=== PATIENT | female | born 1965 | race Caucasian/White ===

== ENCOUNTER → 2019-05-09 09:13 | Outpatient (BNVA) | payer MEDICAID, SELFPAY | PROVIDERS: Family Provider Family Medicine; PCP Family Medicine; Visit Provider Anesthesiology | DX: G89.29 Other chronic pain (principal); M54.16 Radiculopathy, lumbar region; M79.651 Pain in right thigh; M79.652 Pain in left thigh; M54.2 Cervicalgia; Z79.891 Long term (current) use of opiate analgesic | CPT/HCPCS: 99214 ==

== ENCOUNTER → 2019-07-05 10:09 | Outpatient (BNVA) | payer MEDICAID, SELFPAY | PROVIDERS: Family Provider Family Medicine; PCP Family Medicine; Visit Provider Nurse Practitioner | DX: G89.29 Other chronic pain (principal); M54.16 Radiculopathy, lumbar region; M54.2 Cervicalgia; Z79.891 Long term (current) use of opiate analgesic | CPT/HCPCS: 99213 ==

== ENCOUNTER → 2019-09-28 09:09 | Outpatient (BNVA) | payer MEDICAID, SELFPAY | PROVIDERS: Family Provider Family Medicine; PCP Family Medicine; Visit Provider Anesthesiology | DX: G89.29 Other chronic pain (principal); M54.41 Lumbago with sciatica, right side; M54.42 Lumbago with sciatica, left side; M47.816 Spondylosis without myelopathy or radiculopathy, lumbar region; M54.16 Radiculopathy, lumbar region; M54.9 Dorsalgia, unspecified; M54.2 Cervicalgia; Z79.891 Long term (current) use of opiate analgesic | CPT/HCPCS: 99214 ==

== ENCOUNTER 2019-10-17 14:12 | Outpatient (CLI) | payer MEDICAID, SELFPAY ==
--- NOTE | 2019-10-17 14:16 | XRR_ITS ---
PROCEDURE INFORMATION: Exam: XR Right Knee Exam date and time: 10/17/2019 2:43 PM Age: 54 years old Clinical indication: Pain; Knee; Right; Additional info: Pain in right knee TECHNIQUE: Imaging protocol: XR Right knee. Views: 3 views. COMPARISON: No relevant prior studies available. FINDINGS: Bones/joints: Unremarkable Soft tissues: Normal. XR/XR knee RT 3V* [id number] IMPRESSION: No acute findings.
== END 2019-10-17 14:13 | disposition home or self-care (01) ==
PROVIDERS: Family Provider Family Medicine; PCP Family Medicine; Visit Provider Registered Nurse
DX: M25.561 Pain in right knee (principal); M25.461 Effusion, right knee
CPT/HCPCS: 73562

== ENCOUNTER 2019-11-06 11:15 | Outpatient (CLI) | payer MEDICAID, SELFPAY ==
--- NOTE | 2019-11-06 11:22 | MR_ITS ---
WS: [id number] MRI RIGHT KNEE HISTORY: ACUTE PAIN OF RIGHT KNEE COMPARISON: Radiographs 10/17/2019 Anterior cruciate ligament: Intact. Posterior cruciate ligament: Intact. Medial collateral ligament: Increased soft tissue and fluid signal along the MCL. There is mild displ acement from the joint line by meniscal extrusion. No full-thickness tear. Posterior lateral corner structures: Intact. Medial menisci: Partially extruded meniscus from the joint line but no tear is identified. Lateral meniscus: Intact. Normal signal, size and shape. Extensor mechanism: Distal quadriceps tendon and patellar tendons are intact. Fluid and soft tissue: Very large suprapatellar joint effusion. Fluid extends around the condyles and there is adjacent soft tissue edema. No Castillo's cyst. Osseous and articular structures: Patellofemoral compartment: Normal. Medial compartment: Mild narrowing medial compartment. There is a narrow fissure in the cartilage ove r the femoral condyle weightbearing surface. There is additional mild narrowing of the joint space an d small osteophytes. Lateral compartment: Mild narrowing of the lateral compartment. Cartilage is intact. T2 bright and T1 low signal well-circumscribed 7 mm nodule in the proximal fibula is probably a small enchondroma. Similar nodule in the distal femur. MR/MR knee RT wo con* [id number] IMPRESSION: 1. Very large joint effusion and soft tissue edema. 2. Mild MCL sprain. 3. Partially extruded medial meniscus. No tear is identified. 4. Small focal cartilage defect along the weightbearing surface medial femoral condyle. 5. Small enchondromas distal femur and proximal fibula.
== END 2019-11-06 11:16 | disposition home or self-care (01) ==
LOC: RADWPI 11:22
PROVIDERS: Family Provider Family Medicine; PCP Family Medicine; Visit Provider Registered Nurse
DX: M25.461 Effusion, right knee (principal); R60.0 Localized edema; S83.411A Sprain of medial collateral ligament of right knee, initial encounter; X58.XXXA Exposure to other specified factors, initial encounter; D16.21 Benign neoplasm of long bones of right lower limb
CPT/HCPCS: 73721

== ENCOUNTER 2019-11-29 07:28 | Day surgery (SDC) | payer MEDICAID, SELFPAY ==
[2019-11-29] VITALS (9 sets, daily range): BP systolic 119–160; BP diastolic 82–98; PULSE 64–96; RESP 16–18; TEMP 36.6–37.1; O2SAT 94–97
[2019-11-29] MEDS: sodium chloride 0.9% 1,000 ML 30 ML IV (08:08)
--- NOTE | 2019-11-29 08:10 | P.ANESASSM_ITS ---
Pre-Anesthetic Assessment Pre-Anesthetic Assessment: Height/Weight: Height 1.61 m Weight 113.398 kg Temp Pulse Resp BP Pulse Ox 97.9 F 77 18 149/94 97 11/29/19 07:40 11/29/19 07:40 11/29/19 07:40 11/29/19 07:40 11/29/19 07:40 Preop Diagnosis: Osteoarthritis right knee Proposed Procedure: Operation Date: 11/29/19 09:15 Proposed Procedures p Knee Arthroscopy 45047 [id number] M17.11(Right) - Dmitriy Wilson MD Familial anesthetic complications: PONV Was Beta Belinda taken within 24 hour s: N/A Last intake: Intake Last Liquid Date 11/28/19 Last Liquid Time 22:00 Last Solid Date 11/28/19 Last Solid Time 20:00 Social: Social History: No alcohol and No tobacco Exam: Pre-Anes Outpt Exam: alert, oriented x 3, clear to auscultation bilaterally and regular rate & rhythm Airway: Cervical ROM: WNL MP: 2 Dentition: Chipped Musc/skel: Comments: back pain and neck pain Anesthetic Plan: ASA status: 1 Anesthesia: General Risk of > 500 ml blo od loss (7ml/kg in children): No Meds/Allergies Current Medications: Current Medications Generic Name Dose Route Start Last Admin Trade Name Freq PRN Reason Stop Dose Admin Sodium Chloride 1,000 mls @ 30 ml s/hr 11/29/19 07:45 11/29/19 08:08 Sodium Chloride 0.9% IV 11/30/19 07:44 30 mls/hr .Q24H JOSS Administration PFSH Anesthesia PFSH: Medical History (Updated 11/12/19 @ 09:59 by Dmitriy Wilson MD) Chronic neck pain Encounter for long-term opiate analgesic use Opioid contract exists Radiculopathy, lumbar region Surgical History History of cholecystectomy History of hysterectomy History of knee replacement History of shoulder surgery Family History Other Cancer Social History Smoking and tobacco status: former smoker Alcohol intake: never Data Anesthesia Cardiac Studies: No Data to Display
[2019-11-29] MEDS: scopolamine 1.5 Patch 1 PATCH TRANSDERMA (09:08)
--- NOTE | 2019-11-29 09:20 | W.PM.OPSUD ---
Surgery/Procedure H&P Update DATE OF PROCEDURE: November 29, 2019 DATE H&P PERFORMED: 11/12/19 PREOP DIAGNOSIS: Osteoarthritis right knee PLANNED PROCEDURE: Operation Date: 11/29/19 09:15 Proposed Procedures p Knee Arthroscopy 25670 [id number] M17.11(Right) - Dmitriy Wilson MD
--- NOTE | 2019-11-29 10:12 | P.OP_ITS ---
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 She had exposed subchondral bone centrally over the medial femoral condyle with unstable flaps and fissures over an area of approximately 2 x 2 cm. Her lateral compartment was generally pristine. She had fibrillation and fraying on the undersurface the patella that was not thought to involve more than 50% of the medial facet Condition: stable Disposition: PACU Brief History: Ms. Rodney is a 54-year-old female with chronic right knee pain. She has tried to manage her right knee pain with her pain medication including hydromorphone unsuccessfully. She had a previous of left knee problems that did not respond well to steroid injections and refused she refused injections. Due to her persistent pain arthroscopic debridement was chosen as an option to improve pain and function. She has been counseled as to the limitations of arthroscopy in the presence of osteoarthritis Procedure: The patient was taken to the operating room and given a general anesthesia. Her leg was prepped with a Betadine and her right knee infiltrated with 30 cc of 0.5% Marcaine and 10 mg of morphine. The leg was then prepped and draped in the usual fashion. It was entered through the standard inferior med ial and inferior lateral portal. The diagnostic portion of the arthroscopy was performed and the above findings noted. Initial attention was paid to the medial meniscus. Utilizing a basket unstable central flaps involving approximately 50% of the medial meniscus were removed. The rim was then cleaned up with an incisor shaver and [employer] probe leaving approximately 40% of the meniscus behind. Next attention was focused unstable flaps and fissures of the medial femoral condyle. Utilizing an incisor shaver peripheral unstable flaps about the area of exposed subchondral bone were debrided back. The [employer] probe was then used to debride the edges back to a stable base. The lateral compartment was inspected and found to be pristine. Attention was then focused on the patellofemoral articulation. She had fairly healthy trochlear cartilage but fibrillations and fraying were identified about the patella. Utilizing the [employer] probe unstable fibrillated and frayed cartilage over the medial facet of the patella was lightly debrided back. This debridement was thought to involve less than 50% of the thickness of cartilage and certainly no exposed subchondral bone about the patella was identified. The knee was irrigated with saline. Portals were closed with 3-0 Prolene. Sterile dressings were applied. The patient was extubated and taken to recovery in stable condition.
[2019-11-29] MEDS: fentaNYL 50 mcg/mL INJ 2mL IVP (10:20)
[2019-11-29] MEDS: oxyCODONE 5 mg IR Tab/Cap PO (11:03)
--- NOTE | 2019-11-29 12:30 | ANE.PACU2 ---
Inpatient post-anesthesia follow up: Airway intact: Yes Vital signs: Temperature 98.8 F Pulse Rate 64 Respiratory Rate 18 Blood Pressure 160/90 Pulse Oximetry 96 Oxygen Delivery Me thod Room Air Oxygen Flow Rate Fraction of Inspir ed Oxygen Hydration adequate: Yes Nausea and vomiting: No Pain level: 1 Mental status: Baseline
== END 2019-11-29 11:30 | disposition home or self-care (01) ==
PROVIDERS: PCP Family Medicine; Visit Provider Orthopaedic Surgery
PROC: (CPT 29870; principal; 2019-11-29 09:15)
DX: S83.231A Complex tear of medial meniscus, current injury, right knee, initial encounter (principal); M17.11 Unilateral primary osteoarthritis, right knee; M22.41 Chondromalacia patellae, right knee; M54.16 Radiculopathy, lumbar region; G89.29 Other chronic pain; Z79.891 Long term (current) use of opiate analgesic; Z87.891 Personal history of nicotine dependence; X58.XXXA Exposure to other specified factors, initial encounter
CPT/HCPCS: 29881; 12345; J0690; J2704; J3010; J3490; J7030

== ENCOUNTER → 2019-12-04 08:52 | Outpatient (BNVA) | payer MEDICAID, SELFPAY | PROVIDERS: PCP Family Medicine; Visit Provider Anesthesiology | DX: G89.29 Other chronic pain (principal); M47.816 Spondylosis without myelopathy or radiculopathy, lumbar region; M54.16 Radiculopathy, lumbar region; M17.11 Unilateral primary osteoarthritis, right knee; M54.2 Cervicalgia; M54.9 Dorsalgia, unspecified; Z79.891 Long term (current) use of opiate analgesic | CPT/HCPCS: 99214 ==

== ENCOUNTER → 2020-01-29 09:17 | Outpatient (BNVA) | payer MEDICAID, SELFPAY | PROVIDERS: PCP Family Medicine; Visit Provider Anesthesiology | DX: G89.29 Other chronic pain (principal); M54.16 Radiculopathy, lumbar region; M47.816 Spondylosis without myelopathy or radiculopathy, lumbar region; M54.2 Cervicalgia; M54.9 Dorsalgia, unspecified; Z79.891 Long term (current) use of opiate analgesic | CPT/HCPCS: 99213; 99214 ==

== ENCOUNTER → 2020-03-27 08:56 | Outpatient (BNVA) | payer MEDICAID, SELFPAY | PROVIDERS: PCP Family Medicine; Visit Provider Anesthesiology | DX: G89.29 Other chronic pain (principal); M54.16 Radiculopathy, lumbar region; M47.816 Spondylosis without myelopathy or radiculopathy, lumbar region; M54.9 Dorsalgia, unspecified; M54.2 Cervicalgia; Z79.891 Long term (current) use of opiate analgesic | CPT/HCPCS: 99213; 99214 ==

== ENCOUNTER → 2020-05-29 09:03 | Outpatient (BNVA) | payer MEDICAID, SELFPAY | PROVIDERS: PCP Family Medicine; Visit Provider Anesthesiology | DX: G89.29 Other chronic pain (principal); M54.16 Radiculopathy, lumbar region; M47.816 Spondylosis without myelopathy or radiculopathy, lumbar region; M54.9 Dorsalgia, unspecified; M54.2 Cervicalgia; M17.11 Unilateral primary osteoarthritis, right knee; Z79.891 Long term (current) use of opiate analgesic | CPT/HCPCS: 99214 ==

== ENCOUNTER → 2020-07-29 09:12 | Outpatient (BNVA) | payer MEDICAID, SELFPAY | PROVIDERS: PCP Registered Nurse; Visit Provider Anesthesiology | DX: G89.29 Other chronic pain (principal); M54.16 Radiculopathy, lumbar region; M47.816 Spondylosis without myelopathy or radiculopathy, lumbar region; M54.9 Dorsalgia, unspecified; M54.2 Cervicalgia; M25.561 Pain in right knee; Z79.891 Long term (current) use of opiate analgesic | CPT/HCPCS: 99214 ==

== ENCOUNTER → 2020-09-30 13:11 | Outpatient (BNVA) | payer MEDICAID, SELFPAY | PROVIDERS: PCP Registered Nurse; Visit Provider Anesthesiology | DX: G89.29 Other chronic pain (principal); M54.16 Radiculopathy, lumbar region; M47.816 Spondylosis without myelopathy or radiculopathy, lumbar region; M54.41 Lumbago with sciatica, right side; M54.42 Lumbago with sciatica, left side; Z79.891 Long term (current) use of opiate analgesic; Z87.891 Personal history of nicotine dependence | CPT/HCPCS: 99213 ==

== ENCOUNTER 2020-10-17 08:59 | Outpatient (CLI) | payer MEDICAID, SELFPAY ==
--- NOTE | 2020-10-17 09:08 | MR_ITS ---
WS: [id number] MRI RIGHT KNEE NONCONTRAST TECHNIQUE: Axial PD, coronal PD fat sat, coronal PD, sagittal PD, and sagittal PD fat-sat images obta ined. CLINICAL INFORMATION: PAIN OF RIGHT KNEE COMPARISON: MRI November 06, 2019 FINDINGS: Distal quadriceps and patella tendons are intact. Hypertrophic patella. Moderate suprapatellar effusi on. Prepatellar soft tissue edema. Normal ACL and PCL. Moderate degenerative narrowing involving the joint compartments worse in the medial joint compartment. Progressed loss of joint space medial joint compartment with subchondral edema involving the medial femoral condyle and tibial plateau. Associat ed chondromalacia. Normal lateral meniscus. Chronic thinning and partial extrusion of the medial meniscus appears simila r to previous and slightly progressed. Horizontal tear involving the posterior horn medial meniscus e xtending to the articular surface with chronic intrasubstance signal abnormality. Small amount of nayeli ma along the superficial and deep fibers of the MCL consistent with grade one injury Normal lateral c ollateral ligament. Moderate to advanced chondromalacia patella worse involving the medial patella facet. No subchondral edema.Small enchondromas distal femur and proximal fibula unchanged. MR/MR knee RT wo con* [id number] IMPRESSION: 1. Moderate suprapatellar effusion similar in appearance compared to previous. 2. Normal ACL and PCL. 3. Partially extruded medial meniscus similar in appearance to previous appear s slightly progressed. New small horizontal tear involving the posterior horn m edial meniscus. 4. Progressed joint space narrowing involving the medial joint compartment wit h new subchondral edema involving the adjacent femoral condyle and tibial plate au. Associated chondromalacia. 5. Moderate to advanced chondromalacia patella. No subchondral edema. 6. Small amount of edema along the superficial and deep fibers of the MCL cons istent with grade one injury. Outbridge grading: grade III: partial-thickness cartilage loss with focal ulcer ation
== END 2020-10-17 09:00 | disposition home or self-care (01) ==
PROVIDERS: PCP Registered Nurse; Visit Provider Registered Nurse
DX: M25.561 Pain in right knee (principal); G89.29 Other chronic pain; Z98.890 Other specified postprocedural states; Z87.828 Personal history of other (healed) physical injury and trauma; R60.0 Localized edema; M22.41 Chondromalacia patellae, right knee; M25.461 Effusion, right knee
CPT/HCPCS: 73721

== ENCOUNTER → 2020-11-25 08:52 | Outpatient (BNVA) | payer MEDICAID, SELFPAY | PROVIDERS: PCP Registered Nurse; Visit Provider Anesthesiology | DX: G89.29 Other chronic pain (principal); M54.16 Radiculopathy, lumbar region; M47.816 Spondylosis without myelopathy or radiculopathy, lumbar region; M54.2 Cervicalgia; M17.11 Unilateral primary osteoarthritis, right knee; Z79.891 Long term (current) use of opiate analgesic; Z87.891 Personal history of nicotine dependence | CPT/HCPCS: 99214 ==

== ENCOUNTER → 2021-01-14 11:04 | Outpatient (BNVA) | payer MEDICAID, SELFPAY | PROVIDERS: PCP Registered Nurse; Visit Provider Nurse Practitioner | DX: G89.29 Other chronic pain (principal); M54.16 Radiculopathy, lumbar region; M47.816 Spondylosis without myelopathy or radiculopathy, lumbar region; M17.11 Unilateral primary osteoarthritis, right knee; M54.2 Cervicalgia; Z79.891 Long term (current) use of opiate analgesic | CPT/HCPCS: 99213; 99214 ==

== ENCOUNTER → 2021-04-23 09:30 | Outpatient (BNVA) | payer MEDICAID, SELFPAY | PROVIDERS: PCP Registered Nurse; Visit Provider Anesthesiology | DX: G89.29 Other chronic pain (principal); M54.16 Radiculopathy, lumbar region; M47.816 Spondylosis without myelopathy or radiculopathy, lumbar region; M54.2 Cervicalgia; M17.9 Osteoarthritis of knee, unspecified; Z79.891 Long term (current) use of opiate analgesic | CPT/HCPCS: 99214 ==

== ENCOUNTER → 2022-03-15 11:34 | Outpatient (BNVA) | payer MEDICAID, SELFPAY | PROVIDERS: PCP Registered Nurse; Visit Provider Nurse Practitioner Family | DX: N39.0 Urinary tract infection, site not specified (principal); R53.83 Other fatigue; N63.10 Unspecified lump in the right breast, unspecified quadrant; L83 Acanthosis nigricans; B37.49 Other urogenital candidiasis | CPT/HCPCS: 80053; 81000; 83525; 84443; 87077; 87086; 87184 ==

== ENCOUNTER → 2022-03-30 10:40 | Outpatient (BNVA) | payer MEDICAID, SELFPAY | PROVIDERS: PCP Registered Nurse; Visit Provider Nurse Practitioner Family | DX: R31.9 Hematuria, unspecified (principal) | CPT/HCPCS: 87086 ==

== ENCOUNTER → 2022-06-15 11:19 | Outpatient (BNVA) | payer MEDICAID, SELFPAY | PROVIDERS: PCP Nurse Practitioner Family; Visit Provider Nurse Practitioner Family | DX: R82.90 Unspecified abnormal findings in urine (principal); Z12.39 Encounter for other screening for malignant neoplasm of breast; R10.9 Unspecified abdominal pain; M53.87 Other specified dorsopathies, lumbosacral region; N39.0 Urinary tract infection, site not specified; G89.29 Other chronic pain; I10 Essential (primary) hypertension | CPT/HCPCS: 81000; 87086; 87184 ==

== ENCOUNTER → 2022-07-21 14:10 | Outpatient (BNVA) | payer MEDICAID, SELFPAY | PROVIDERS: PCP Nurse Practitioner Family; Visit Provider Nurse Practitioner Family | DX: N39.0 Urinary tract infection, site not specified (principal); M51.34 Other intervertebral disc degeneration, thoracic region | CPT/HCPCS: 81000 ==

== ENCOUNTER 2022-11-25 13:32 | Outpatient (CLI) | payer MEDICAID, SELFPAY ==
--- NOTE | 2022-11-25 13:42 | MR_ITS ---
WS: [id number] MRI THORACIC SPINE WITHOUT CONTRAST TECHNIQUE: Sagittal T1, T2 and STIR imaging. Axial T2 imaging. Noncontrast imaging obtained. CLINICAL INFORMATION: M51.34 - Other intervertebral disc degeneration, thoracic... COMPARISON: None. FINDINGS: Mild thoracic curve. Mild thoracic kyphosis. No acute compression. No high-grade central canal narrow ing. Chronic anterior wedging the midthoracic spine with a few endplate Schmorl's nodes. A few incide ntal hemangiomas in the mid and lower thoracic spine. Cord signal is normal. Mild facet arthropathy l ower thoracic spine. Adrenal glands are normal. Normal caliber thoracic aorta. Normal paravertebral soft tissues. Tiny dis c protrusions in the cervical spine at C5-C6 and C6-C7. Shallow disc protrusions in the thoracic spine more prominent at T4-T5, T5-T6, T7-T8, and T9-T10 with out significant spinal canal narrowing. Right paracentral protrusion at T4-T5 with slight contact of the thoracic cord. Cord signal remains normal. Mild right T9-T10 and T10-11 bony foraminal narrowing. No high-grade foraminal narrowing. IMPRESSION: 1. Mild thoracic curve. Mild thoracic kyphosis. No acute compression. No high-grade central canal st enosis. 2. Cord signal is normal. 3. Few Tiny protrusions in the thoracic spine described above. 4. Mild right T9-T10 and right T10-11 bony foraminal narrowing. 5. Mild facet arthropathy lower thoracic spine. 6. Tiny central protrusions in the cervical spine at C5-C6 and C6-C7.
== END 2022-11-25 13:33 | disposition home or self-care (01) ==
LOC: RAD 13:34
PROVIDERS: PCP Nurse Practitioner Family; Visit Provider Nurse Practitioner Family
DX: M51.34 Other intervertebral disc degeneration, thoracic region (principal); M40.204 Unspecified kyphosis, thoracic region; M47.816 Spondylosis without myelopathy or radiculopathy, lumbar region
CPT/HCPCS: 72146

== ENCOUNTER 2022-12-16 11:05 | Outpatient (CLI) | payer MEDICAID, SELFPAY ==
--- NOTE | 2022-12-16 11:13 | MR_ITS ---
WS: [id number] MRI LUMBAR SPINE NONCONTRAST HISTORY: M51.36 - Other intervertebral disc degeneration, low back pain down both legs. COMPARISON: None available. TECHNIQUE: Sagittal and axial multisequence imaging is submitted. Small central disc protrusions in the cervical spine at C5-6 and C6-7. Normal lumbar alignment with no compression fractures or marrow edema. Very mild disc space desiccation without loss of height. Vertebral body hemangiomas in T12 and L2. Conus terminates normally at L1-2 disc level. L1-L2: Mild asymmetric disc bulging to the LEFT. Mild disc encroachment upon the LEFT lateral thecal sac. Mild bilateral facet joint arthritis. Mild bilateral foraminal stenosis, LEFT greater than RIGHT . L2-L3: Mild annular disc bulging and small osteophytes. Mild ligamentum flavum and facet arthritis. V alisson mild bilateral foraminal encroachment. L3-L4: Mild annular disc bulging with osteophytic ridging. Mild encroachment upon the subarticular re cesses and the traversing L4 nerve roots. Mild bilateral facet arthritis. Mild bilateral subarticular recess and foraminal narrowing. L4-L5: Mild annular disc bulging with a central annular fissure. Mild central, bilateral subarticular recess and foraminal stenosis. There is mild disc encroachment and contact on the traversing L5 nerv e roots. Moderate ligamentum flavum hypertrophy. There is very minimal disc contact on the exiting LE FT L4 nerve root. L5-S1: Mild bilateral facet joint arthritis. No significant stenosis. Paravertebral soft tissues are normal. IMPRESSION: 1. No high-grade central stenosis. 2. L4-5: Mild central, bilateral subarticular recess and foraminal stenosis due to disc and osteophyt e and facet disease. Disc encroaches upon and contacts the traversing L5 nerve roots. There is also s light disc contact on the exiting LEFT L4 nerve root. 3. L3-4: Mild disc encroachment upon the subarticular recesses and the traversing L4 nerve roots. Mil d bilateral subarticular recess and foraminal stenosis. 4. Mild bilateral foraminal stenosis at L1-2, L2-3 and L5-S1.
== END 2022-12-16 11:06 | disposition home or self-care (01) ==
PROVIDERS: PCP Nurse Practitioner Family; Visit Provider Nurse Practitioner Family
DX: M51.36 Other intervertebral disc degeneration, lumbar region (principal); M47.816 Spondylosis without myelopathy or radiculopathy, lumbar region; M48.07 Spinal stenosis, lumbosacral region
CPT/HCPCS: 72148

== ENCOUNTER → 2023-05-31 13:25 | Outpatient (BNVA) | payer MEDICAID, SELFPAY | PROVIDERS: PCP Nurse Practitioner Family; Visit Provider Nurse Practitioner Family | DX: J32.9 Chronic sinusitis, unspecified (principal) | CPT/HCPCS: 87400; 87426 ==

== ENCOUNTER 2024-02-13 13:56 | Outpatient (CLI) | payer MEDICAID, SELFPAY ==
--- NOTE | 2024-02-13 14:01 | XR_ITS ---
WS: [id number] XR hand RT min 3V* [id number] REASON FOR EXAM: M79.641 - Pain in right hand FINDINGS: No fracture or focal bone lesion. No periosteal reaction or bone erosion. The joint spaces of the right hand are intact and relatively well preserved. Calcification in the triangular fibrocartilage. XR/XR hand RT min 3V* [id number] IMPRESSION: No acute abnormality. No significant arthropathic joint changes. Calcification in the triangular fibr ocartilage suggests the possibility of CPPD.
--- NOTE | 2024-02-13 14:01 | XR_ITS ---
WS: [email or web address] XR knee RT 3V* [id number] REASON FOR EXAM: M25.561 - Pain in right knee FINDINGS: Total right knee arthroplasty. Prosthetic components are intact and in proper position and alignment. No focal bony abnormality. XR/XR knee RT 3V* [id number] IMPRESSION: Total right knee arthroplasty without abnormality.
--- NOTE | 2024-02-13 14:01 | XR_ITS ---
WS: [email or web address] XR foot RT min 3V* [id number] REASON FOR EXAM: M79.671 - Pain in right foot FINDINGS: No fracture or focal bone lesion. No periosteal reaction or bone erosion. The joint spaces of the forefoot, midfoot, and hindfoot are intact and relatively well preserved. Moderate anterior and posterior calcaneal enthesophytes. Moderate valgus deformity of the great toe with minimal joint space narrowing and subchondral scleros is of the first MTP joint. XR/XR foot RT min 3V* [id number] IMPRESSION: Moderate valgus deformity of the great toe. Calcaneal enthesophytes as above.
--- NOTE | 2024-02-13 14:01 | XR_ITS ---
WS: [email or web address] XR shoulder RT min 2V* [id number] REASON FOR EXAM: PAIN IN RIGHT SHOULDER FINDINGS: No fracture or focal bone lesion. The acromioclavicular joint space is intact and relatively well preserved. There is mild subchondral sclerosis and osteophytosis. Mild lateral downward slant of the acromial process. The glenohumeral joint space is not well demonstrated but does not appear to be significantly narrowe d. There is moderate sclerosis and cystic change in the greater biceps tuberosity. XR/XR shoulder RT min 2V* [id number] IMPRESSION: Mild osteoarthritis in the acromioclavicular and glenohumeral joint. Moderate rotator cuff tendon arthropathy.
[2024-02-13 14:45] LABS: Alanine Aminotransferase 13 U/L (0-33); Albumin Level 4.1 g/dL (3.5-5.2); Alkaline Phosphatase 81 U/L (35-105); Anion Gap 13.2 (5-19); Aspartate Amino Transferase 20 U/L (0-32); Blood Urea Nitrogen 12 mg/dL (6-20); Calcium 8.4 mg/dL (8.5-10.5); Carbon Dioxide 27 mmol/L (22-29); Chloride 101 mmol/L (98-107); Cholesterol 176 mg/dL (0-200); Globulin 3.4 g/dL (1.3-4.6); Glomerular Filtration Rate 73.9 mL/min (90-130); Glucose 135 mg/dL (65-115); HDL Cholesterol 44 mg/dL (60-100); LDL Cholesterol Calculated 97 mg/dL (50-129); Osmolality Calculated 286 mOsm/kg (285-295); Potassium 4.2 mmol/L (3.5-5.1); Sodium 137 mmol/L (136-145); Total Bilirubin 0.2 mg/dL (0.15-1.2); Total Protein 7.5 g/dL (6.6-8.7); Triglycerides 175 mg/dL (0-150)
== END 2024-02-13 13:57 | disposition home or self-care (01) ==
LOC: RAD 13:58
PROVIDERS: PCP Nurse Practitioner Family; Visit Provider Nurse Practitioner Family
DX: M19.011 Primary osteoarthritis, right shoulder (principal); Z96.651 Presence of right artificial knee joint; M11.249 Other chondrocalcinosis, unspecified hand; M20.11 Hallux valgus (acquired), right foot; M77.31 Calcaneal spur, right foot; I10 Essential (primary) hypertension; E78.5 Hyperlipidemia, unspecified
CPT/HCPCS: 36415; 73030; 73130; 73562; 73630; 80053; 80061

== ENCOUNTER → 2024-02-27 11:21 | Outpatient (BNVA) | payer MEDICAID, SELFPAY | PROVIDERS: PCP Nurse Practitioner Family; Visit Provider Nurse Practitioner Family | DX: R73.09 Other abnormal glucose (principal); M12.811 Other specific arthropathies, not elsewhere classified, right shoulder | CPT/HCPCS: 83036 ==

== ENCOUNTER → 2024-09-17 11:54 | Outpatient (BNVA) | payer MEDICAID, SELFPAY | PROVIDERS: PCP Nurse Practitioner Family; Visit Provider Nurse Practitioner Family | DX: I10 Essential (primary) hypertension (principal); E78.5 Hyperlipidemia, unspecified; M79.7 Fibromyalgia; M54.16 Radiculopathy, lumbar region; K21.9 Gastro-esophageal reflux disease without esophagitis | CPT/HCPCS: 80053; 80061 ==

== ENCOUNTER → 2024-12-14 08:34 | Outpatient (BNVA) | payer MEDICAID, SELFPAY | PROVIDERS: PCP Nurse Practitioner Family; Visit Provider Nurse Practitioner Family | DX: R63.5 Abnormal weight gain (principal) | CPT/HCPCS: 82533; 82627; 82670; 82672; 83036; 83525; 84144 ==

== ENCOUNTER → 2025-01-07 09:30 | Outpatient (BNVA) | payer MEDICAID, SELFPAY | PROVIDERS: PCP Nurse Practitioner Family; Visit Provider Nurse Practitioner Family | DX: E16.8 Other specified disorders of pancreatic internal secretion (principal) | CPT/HCPCS: 83525 ==